=== PATIENT | female | born 1950 | race Two or more races ===

== ENCOUNTER 2017-05-24 09:12 | Outpatient (CLI) | payer OTHER ==
[~2017-05-24 09:12] MED LIST: PROTECT PLUS S1 EACH PO
== END 2017-05-24 09:28 | disposition home or self-care (01) ==
LOC: SONOGRAMA 09:12
DX: E04.1 Nontoxic single thyroid nodule (principal)

== ENCOUNTER 2017-09-06 19:27 | Emergency (ER) | payer OTHER ==
[~2017-09-06] VITALS: Ht 162.6 cm; Wt 59.0 kg
== END 2017-09-06 22:46 | disposition home or self-care (01) ==
LOC: ER 19:27
DX: K59.09 Other constipation (principal); K80.80 Other cholelithiasis without obstruction

== ENCOUNTER → 2017-10-13 | Day surgery (SDC) | payer OTHER ==
[~2017-10-13] VITALS: Ht 160 cm; Wt 59.0 kg
[~2017-10-13] MED LIST changes: +IRBESARTAN; +PROTONIX40 MG PO; +ULTRACET PO
== END | disposition home or self-care (01) ==
LOC: RAD 10-04 06:35 → EDSTATUS 10-04 07:43 → SURH 10-04 07:46 → O/R 06:00 → SURH 06:00 → EDSTATUS 11:15 → SURH 14:31 → CIR.AMB 15:56
DX: K80.10 Calculus of gallbladder with chronic cholecystitis without obstruction (principal)

== ENCOUNTER 2018-06-29 07:20 | Emergency (ER) | payer OTHER ==
[~2018-06-29] VITALS: Ht 160 cm; Wt 59.4 kg
[2018-06-29] MEDS ORDERED: AVAPRO150 MG (07:32)
== END 2018-06-29 08:55 | disposition home or self-care (01) ==
LOC: ER 07:20
DX: R10.32 Left lower quadrant pain (principal)